=== PATIENT | male | born 2000 | race African-American/Black ===

== ENCOUNTER 2020-06-03 18:00 | Emergency (ER) | payer BC ==
[~2020-06-03] VITALS: Ht 180.3 cm; Wt 65.8 kg
[2020-06-03 18:01] VITALS: BP 122/71
[2020-06-03 18:20] LABS: URINE BILIRUBIN NEGATIVE (Negative); URINE BLOOD NEGATIVE (Negative); URINE CLARITY CLEAR; URINE COLOR YELLOW; URINE GLUCOSE-RANDOM* NEGATIVE (Negative); URINE KETONES NEGATIVE (Negative); URINE LEUKOCYTES-REFLEX NEGATIVE (Negative); URINE NITRITE-REFLEX NEGATIVE (Negative); URINE PROTEIN (DIPSTICK) NEGATIVE (Negative); URINE UROBILINOGEN 0.2 E.U./dl (0.2-1.0)
== END 2020-06-03 19:13 | disposition home or self-care (01) ==
LOC: ER 18:00
PROVIDERS: Nurse Practitioner
DX: R30.0 Dysuria (principal); F17.210 Nicotine dependence, cigarettes, uncomplicated

== ENCOUNTER 2020-09-26 03:38 | Emergency (ER) | payer BC ==
[~2020-09-26] VITALS: Ht 177.8 cm; Wt 61.2 kg
[2020-09-26 04:44] VITALS: BP 118/68
== END 2020-09-26 04:44 | disposition home or self-care (01) ==
LOC: ER 03:38
DX: R09.81 Nasal congestion (principal); R68.83 Chills (without fever); F17.210 Nicotine dependence, cigarettes, uncomplicated; Z20.828 Contact with and (suspected) exposure to other viral communicable diseases